=== PATIENT | female | born 1975 | race African-American/Black ===

== ENCOUNTER 2021-03-02 21:26 | Inpatient (IN) | payer OTHER ==
[~2021-03-02] VITALS: Ht 162.6 cm; Wt 97.1 kg
--- NOTE | ~2021-03-02 | HC ---
[facility] [place] [address] CONSULTATION Name: MEHRDAD HARRIS Room #: 250- ADM IN M.R.#: [id number] Admission: 03/02/21 Attend Phys: Angelito Martini MD Discharge: Date of : 71 Report #: [id number] THIS REPORT FOR: cc: CATHY - No family physician/PCP FAM - No family physician/PCP Roverto Wallis MD ~ DATE OF SERVICE: 03/03/2021 HISTORY OF PRESENT ILLNESS: This 45-year-old female patient who was seen by me because of what was described as PRES on the CT scan. She gave a history that she has been out of town and she did not take her medicines and she was admitted with a very high blood pressure. Blood pressure has been lower since then. The patient does have some headache, but no other significant problem has been noticed in this patient. REVIEW OF SYSTEMS: Positive for hypertension and what looks like a pretty significant noncompliance as she suddenly stopped taking her antihypertensive. She also was complaining of some chest pain. A 14-point review of system is positive for prior tubal ligation, hypertension, noncompliance. Otherwise, 14-point review of system was mostly unremarkable. She did have some tingling and numbness on the left side, but that was resolved today. I had seen her last night as well as this morning. PAST MEDICAL HISTORY: Negative for any strokes. FAMILY HISTORY: Unremarkable. SOCIAL HISTORY: She drinks alcohol weekly. She does smoke. PHYSICAL EXAMINATION: NEUROLOGIC: Indicate she is alert, responsive, able to follow simple and complex command. Cranial nerve examination is unremarkable except I could not look at the patient's fundus. Neuromuscular examination was symmetrical. There is no cerebellar sign. I could not look at the patient's fundus. VITAL SIGNS: Blood pressure last one was 155/91. CARDIORESPIRATORY: Unremarkable. LABORATORY DATA: White count is somewhat up at 11.1. I reviewed the CT and subsequently reviewed the MRI and a carotid Doppler. CT has raised the suspicion for PRES. MRI did not confirm that. Carotid Doppler was unremarkable. IMPRESSION: 1. Hypertensive emergency, because of noncompliance. 2. Either she did not have a PRES on the CTA and that was an artifact or it has resolved as MRI does not show that. In either way, the main management is going [address] [address] CONSULTATION Name: MEHRDAD HARRIS Room #: 250-P [facility] IN M.R.#: [id number] Admission: 03/02/21 Attend Phys: Angelito Martini MD Discharge: Date of : 71 Report #: [id number] to be in the management of her hypertension. She does have some high HDL and that also need to be treated. I will suggest checking a sed rate in this patient. Otherwise, I do not have anything specific to add. No further workup may have to be done. If headache continued then you may consider doing MRI of the venous sinuses. Thank you very much for this referral. Please call if there are any further neurological questions and follow up as needed. By: [id number] Roverto Wallis MD /nt
[2021-03-02 21:28] VITALS: BP 209/117
[2021-03-02 21:56] LABS: HEMOGLOBIN 11.4 gm/dL (12.0-15.0); PLATELET COUNT 275 thou/uL (150-400); WBC 11.1 thou/uL (4.0-11.0)
[2021-03-02 21:57] LABS: ABSOLUTE NEUTROPHILS 6.9 thou/uL (1.4-8.2); EOSINOPHILS 1.5 % (0.0-3.0); HEMATOCRIT 36.3 % (37.0-47.0); LYMPHOCYTES 26.5 % (24.0-44.0); MCH 25.3 pg (26.0-34.0); MCHC 31.5 g/dL (28.0-37.0); MCV 80.3 fL (80.0-100.0); MONOCYTES 8.8 % (1.0-8.0); POLYS 62.2 % (36.0-66.0); RBC 4.52 mil/uL (4.20-5.00); RDW 16.6 % (10.5-14.5)
[2021-03-02 22:03] LABS: ANION GAP 10 mmol/L (7-16); BUN 12 mg/dL (7-18); CALCIUM 8.4 mg/dL (8.5-10.1); CHLORIDE 103 mmol/L (98-107); CO2 26 mmol/L (21-32); CREATININE 0.9 mg/dL (0.6-1.0); GLUCOSE 99 mg/dL (74-106); SODIUM 139 mmol/L (136-145)
[2021-03-02 22:15] LABS: ALBUMIN 3.2 g/dL (3.4-5.0); SGOT 16 U/L (15-37); SGPT 17 U/L (30-65); TOTAL BILIRUBIN 0.1 mg/dL (0.2-1.0); TOTAL PROTEIN 7.3 g/dL (6.4-8.2); TROPONIN-I <0.06 ng/mL (<0.06)
[2021-03-03] VITALS (37 sets, daily range): BP systolic 116–185; BP diastolic 57–100
[2021-03-03 00:20] LABS: CHOLESTEROL 194 mg/dL (<200); HDL CHOLESTEROL 62 mg/dL (>40); LDL CHOLESTEROL 102 mg/dL (<100); TC:HDL 3.1 Ratio (Not establshd); TRIGLYCERIDE 150 mg/dL (<150); VLDL 30 mg/dL (<40)
[2021-03-03 00:26] LABS: SERUM ASSESSMENT Clear
--- NOTE | 2021-03-03 07:16 | EKG ---
[address] [address] ELECTROCARDIOGRAM REPORT Name: MEHRDAD HARRIS Room #: 244-P ADM IN M.R.#: [id number] Admission: 03/02/21 Attend Phys: Angelito Martini MD Discharge: Date of : 71 Report #: [id number] [facility] ED Test Date: 2021-03-02 Test Time: 21:32:29 Pat Name: MEHRDAD HARRIS Department: Room: [facility] Gender: F It Operations Analyst: MALCOM : 1975 Requested By: Deo Barr Order Number: [id number] MD: Babatunde Merida Measurements Intervals [place] Rate: 70 P: 62 PA: 160 QRS: 17 QRSD: 78 T: 21 QT: 392 QTc: 423 Interpretive Statements Sinus rhythm No previous ECG available for comparison Electronically Signed On 03-03-2021 7:16:38 CDT by Babatunde Merida [email or web address] <ELECTRONICALLY SIGNED> By: Babatunde Merida MD, [facility] 03/03/21 0716 [id number] Babatunde Merida MD, FACC /EPI
--- NOTE | 2021-03-03 08:12 | NUR ---
Pt admitted for ER to icu 244. pt c/o of lt arm numbness, and headache. Cardene gtt infusing at2.5mg/hr. Neuro intact. Will cont to assess neuro status. Cont plan of care
--- NOTE | 2021-03-03 10:59 | 2DMMODE ---
[facility] [place] [address] 2 D/M-MODE ECHOCARDIOGRAM Name: MEHRDAD HARRIS Room #: 244-P ADM IN M.R.#: [id number] Admission: 03/02/21 Attend Phys: Angelito Martini MD Discharge: Date of : 71 Report #: [id number] THIS REPORT FOR: cc: CATHY - Rossana family physician/PCP CATHY - Rossana family physician/PCP Babatunde Merida MD [facility] ~ APPROVED REPORT Study performed: 03/03/2021 09:36:42 EXAM: Comprehensive 2D, Doppler, and color-flow Echocardiogram Patient Location: ICU Room #: 244 Status: routine BSA: 2.01 HR: 68 bpm BP: 155/93 mmHg Rhythm: NSR Other Information Study Quality: Good Indications Hypertension/HDD 2D Dimensions RVDd: 34.59 mm IVSd: 9.58 (7-11mm) LVOT Diam: 19.70 (18-24mm) LVDd: 50.38 mm PWd: 9.55 (7-11mm) Ascending Ao: 26.46 (22-36mm) LVDs: 30.60 (25-40mm) Left Atrium: 33.24 (27-40mm) Aortic Root: 27.21 mm IVC: 15.00 mm Volumes Left Atrial Volume (Systole) Single Plane 4CH: 35.89 mL Single Plane 2CH: 29.32 mL LA ESV Index: 18.00 mL/m2 Aortic Valve AoV Peak Kodak.: 1.60 m/s AO Peak Gr.: 10.22 mmHg LVOT Max P.11 mmHg LVOT Max V: 1.01 m/s JUAN Vmax: 1.93 cm2 [facility] [address] [address] 2 D/M-MODE ECHOCARDIOGRAM Name: MEHRDAD HARRIS Room #: 244-P [facility] IN [facility]#: [id number] Admission: 03/02/21 Attend Phys: Angelito Martini, Discharge: Date of : 71 Report #: [id number] Mitral Valve E/A Ratio: 1.2 MV Decel. Time: 226.32 ms MV E Max Kodak.: 0.83 m/s MV A Kodak.: 0.71 m/s MV PHT: 65.63 ms IVRT: 64.59 ms Pulmonary Valve PV Peak Kodak.: 0.93 m/s PV Peak Gr.: 3.44 mmHg Pulmonary Vein P Vein S: 0.64 m/s P Vein A: 0.25 m/s P Vein D: 0.31 m/s P Vein A Dur.: 129.2 msec P Vein S/D Ratio: 2.06 Left Ventricle The left ventricle is normal size. There is normal LV segmental wall motion. There is normal left ventricular wall thickness. Left ventricular systolic function is normal. The left ventricular ejection fraction is within the normal range. LVEF is 60-65%. The left ventricular diastolic function is normal. Right Ventricle The right ventricle is normal size. The right ventricular systolic function is normal. Atria The left atrium size is normal. The right atrium size is normal. Aortic Valve The aortic valve is normal in structure. No aortic regurgitation is present. There is no aortic valvular stenosis. Mitral Valve The mitral valve is normal in structure. There is no mitral valve regurgitation noted. No evidence of mitral valve stenosis. Tricuspid Valve The tricuspid valve is normal in structure. There is no tricuspid valve regurgitation noted. Pulmonic Valve The pulmonary valve is normal in structure. There is no pulmonic [facility] [address] [place] [address] 2 D/M-MODE ECHOCARDIOGRAM [facility] Room #: 244-P [facility] IN [facility].#: [id number] Admission: 03/02/21 Attend Phys: Angelito Martini, Discharge: Date of : 71 Report #: [id number] valvular regurgitation. Great Vessels The aortic root is normal in size. IVC is normal in size and collapses >50% with inspiration. Pericardium There is no pericardial effusion. <Conclusion> Normal left ventricular size/wall thickness Ejection fraction 60% Normal right ventricular size/function Normal atrial size Normal aortic/mitral valve structure and function Normal tricuspid valve insufficiency No pericardial effusion Normal aortic root size. <ELECTRONICALLY SIGNED> By: Babatunde Merida MD, FAC 03/03/21 1059 [id number] [id number] Babatunde Merida MD, [facility] /INF
--- NOTE | 2021-03-03 16:03 | NUR ---
ASSUMED CARE OF PT AT 0700 PT IS MEETING GOALS AND SHOULD BE READY FOR DISCHARGE, JUST WAITING ON ORDERS FROM THE HOSPITALIST.
--- NOTE | 2021-03-03 17:56 | NUR ---
1700-ASSUMED CARE OF PT. IN CHAIR,TO TOILET W SBA. GAIT STEADY.NO DIZZINESS OR LIGHTHEADEDNESS.WATCHING TV, EATING DINNER.--VW
[2021-03-04 04:25] VITALS: BP 114/69
--- NOTE | 2021-03-04 05:36 | NUR ---
Pt remains stable in this shift. She is resting well t/ot he night. Report her BARTON has been better. Denies of any CP or any blurrly vision. NPO since after midnight for stress test this am. VSS. Continue progressing toward goals.
--- NOTE | 2021-03-04 07:36 | NUR ---
ASSUMMED CARE OF THIS PATIENT FROM THE NIGHT NURSE, JORDON PEDRAZA.
[2021-03-04 07:48] VITALS: BP 137/86
--- NOTE | 2021-03-04 11:10 | NUR ---
Discussed during am unite rounds and LOS. CCU. Out of ICU when bed avaible and possible dc home today. No anticipated needs. Will cont following as needed for dc needs.
[2021-03-04 12:00] VITALS: BP 120/70
--- NOTE | 2021-03-04 12:39 | NUR ---
TO [facility] FOR STRESS TEST VIA W/C.
[2021-03-04 14:52] VITALS: BP 122/68
[2021-03-04 16:01] VITALS: BP 128/71
[2021-03-04 16:06] LABS: HEMATOCRIT 38.7 % (37.0-47.0); MCH 24.9 pg (26.0-34.0); MCHC 31.1 g/dL (28.0-37.0); MCV 79.9 fL (80.0-100.0); RBC 4.84 mil/uL (4.20-5.00); RDW 16.5 % (10.5-14.5); WBC 9.2 thou/uL (4.0-11.0)
[2021-03-04 16:09] LABS: CALCIUM 9.1 mg/dL (8.5-10.1); CREATININE 1.1 mg/dL (0.6-1.0); POTASSIUM 3.7 mmol/L (3.5-5.1)
--- NOTE | 2021-03-04 18:40 | NUR ---
PATIENT IS PROGRESSING TOWARDS OUTCOME GOALS. RETURNED FROM NUCLEAR MED STUDY AT 1415. WILL DO SECOND PORTION OF THE STUDY TOMORROW. HEADACHE RELEIVED AND AND BP IS WITHIN PARAMATERS.
[2021-03-04 20:00] VITALS: BP 124/71
[2021-03-05] VITALS (7 sets, daily range): BP systolic 98–116; BP diastolic 58–68
[2021-03-05] MEDS ORDERED: FELODIPINE 5 MG5 M1 PO (10:19)
[2021-03-05] MEDS ORDERED: BENICAR40 MG PO (10:19)
[2021-03-05] MEDS ORDERED: HYDROCHLOROTHIA25 M1 PO (10:19)
--- NOTE | 2021-03-05 11:31 | NUR ---
Possible dc later today after 2nd part stress test. Intelligence Agent visited with the pt at bedside regarding f/[place] care needs [place]. Pt noted to be pt pay and was seen by [facility]. She states they told her she would not qualify for [place] medicaid however she indicates that she recently moved here from [place] and that her [place] medicaid is still active per [facility]. She will try to send a pic of her card once she gets home (does not have it with her). She will call her pcp in [place] about refills of her meds thru [facility] or [facility] as she ran out. She is having her scripts from [place] today sent to [facility] as well. Goodrx coupon given along with [employer] info for [facility]followup care if she intends to stay in this area. UR notified of possible [place] medicaid plan as her admission was emergent. She reports being indep with gait and adl's. She has supportive sign other and dtr locally. No other cm interventions indicated at this time. Case discussed with her RN and the attending.
--- NOTE | 2021-03-05 14:33 | NUR ---
ALERT AND ORIENTED AND VITALS STABLE. UP AD XAVIER AND TOLERATING DIET W/O NAUSE. WENT FOR NUCLEAR STRESS TEST. DR. KILLIAN PAGED AND MESSAGED VIA [facility] TEXT RE DC ORDERS, NO CALL BACK RECEIVED YET.
--- NOTE | 2021-03-05 16:02 | NUR ---
DC ORDERS RECEIVED, PATIENT'S RX FILLED BY MARYLOU URIAS THROUGH THE OUTPATIENT PHARMACY. DC INSTRUCTIONS GIVEN TO PATIENT AND ADVICED TO FOLLOW UP WITH PCP IN 2WKS AND NEEDED. IV DC AND PATIENT WAITING FOR HER RIDE.
== END 2021-03-05 18:27 | disposition home or self-care (01) | DRG 304 ==
LOC: ER 21:26 → EROBS 23:42 → ICU 03-03 00:49
PROVIDERS: Emergency Medicine; Nurse Practitioner Family; ADMIT Internal Medicine; ATTEND Internal Medicine
DX: I16.1 Hypertensive emergency (principal); I67.83 Posterior reversible encephalopathy syndrome; I10 Essential (primary) hypertension; K21.9 Gastro-esophageal reflux disease without esophagitis; F17.210 Nicotine dependence, cigarettes, uncomplicated; Z90.49 Acquired absence of other specified parts of digestive tract; Z88.6 Allergy status to analgesic agent; Z91.040 Latex allergy status; Z91.018 Allergy to other foods; Z82.49 Family history of ischemic heart disease and other diseases of the circulatory system; Z71.6 Tobacco abuse counseling; Z20.822 Contact with and (suspected) exposure to COVID-19
CPT/HCPCS: 10078; 10203